=== PATIENT | female | born 1950 | race Caucasian/White ===

== ENCOUNTER 2023-07-07 22:51 | Emergency (ER) | payer MEDICARE | END 2023-07-08 00:05 | disposition home or self-care (01) | LOC: ERS 22:51 | DX: I10 Essential (primary) hypertension (principal); M81.0 Age-related osteoporosis without current pathological fracture; Z86.73 Personal history of transient ischemic attack (TIA), and cerebral infarction without residual deficits; Z79.01 Long term (current) use of anticoagulants | CPT/HCPCS: 99283 ==

== ENCOUNTER 2024-01-12 10:39 | Outpatient (CLI) | payer MEDICARE | END 2024-01-12 10:40 | disposition home or self-care (01) | LOC: RAD 10:39 | PROVIDERS: ATTEND Physician Assistant Medical | DX: R13.12 Dysphagia, oropharyngeal phase (principal); I69.30 Unspecified sequelae of cerebral infarction | CPT/HCPCS: 74230 ==

== ENCOUNTER 2024-02-18 13:06 | Outpatient (CLI) | payer MEDICARE | END 2024-02-18 13:07 | disposition home or self-care (01) | LOC: BICMAMMO 13:06 | PROVIDERS: ATTEND Family Medicine | DX: Z12.31 Encounter for screening mammogram for malignant neoplasm of breast (principal); Z13.820 Encounter for screening for osteoporosis; M81.0 Age-related osteoporosis without current pathological fracture; Z80.3 Family history of malignant neoplasm of breast; Z78.0 Asymptomatic menopausal state | CPT/HCPCS: 77063; 77067; 77080 ==

== ENCOUNTER 2024-02-23 13:42 | Outpatient (CLI) | payer MEDICARE ==
[~2024-02-23 13:42] MED LIST: Magnevist 469MG/ML 20 ML VIAL ONE
== END 2024-02-23 13:43 | disposition home or self-care (01) ==
LOC: BICMRI 13:42
PROVIDERS: ATTEND Psychiatry & Neurology Neurology
DX: G37.9 Demyelinating disease of central nervous system, unspecified (principal)
CPT/HCPCS: 72156

== ENCOUNTER 2024-07-11 09:12 | Outpatient (CLI) | payer MEDICARE | END 2024-07-11 09:13 | disposition home or self-care (01) | LOC: NM 09:12 | PROVIDERS: ATTEND Family Medicine | DX: E83.52 Hypercalcemia (principal); R79.89 Other specified abnormal findings of blood chemistry; E04.2 Nontoxic multinodular goiter | CPT/HCPCS: 78072; A9500 ==

== ENCOUNTER 2025-04-15 15:47 | Inpatient (IN) | payer MEDICARE ==
[2025-04-15] MEDS ORDERED: Iopamidol-370 76% 500 ML MDV (1 ML CHARGE) ONE (16:08)
[2025-04-15 16:28] LABS: #Basophils 0.03 10x3/uL (0.0-0.2); #Eosinophils 0.16 10x3/uL (0.0-0.7); #Monocytes 0.66 10x3/uL (0.11-0.59); #Neutrophils 4.01 10x3/uL (1.40-6.50); %Basophils 0.5 % (0.0-1.0); %Eosinophils 2.6 % (0.0-10.0); %Lymphocytes 21.7 % (21.0-51.0); %Monocytes 10.6 % (0.0-10.0); %Neutrophils 64.4 % (42.0-75.0); Hematocrit 43.9 % (36.0-47.0); Hemoglobin 14.3 g/dL (12.0-16.0); Mean Corpuscular Hemoglobin 30.2 pg (27.0-31.0); Mean Corpuscular Volume 92.6 fL (78.0-98.0); Platelet Count 188 10x3/uL (130-400); Red Blood Cell (RBC) Count 4.74 mill/uL (4.20-5.40); White Blood Cell (WBC) Count 6.22 10x3/uL (4.8-10.8)
[2025-04-15 16:50] LABS: ALT (SGPT) 19 U/L (Less than 34); AST (SGOT) 24 U/L (11-34); Albumin 3.8 g/dL (3.1-4.5); Alkaline Phosphatase 113 U/L (40-110); Anion Gap 13 mmol/L (10-20); BUN (Urea Nitrogen) 6 mg/dL (9.8-20.1); Bilirubin, Total 0.5 mg/dL (0.3-1.2); Calc. Creatinine Clearance 0 mL/min (70-130); Calcium 9.9 mg/dL (7.8-10.44); Carbon Dioxide 24 mmol/L (23-31); Chloride 109 mmol/L (98-107); Globulin 2.9 g/dL (2.4-3.5); Glucose 84 mg/dL (83-110); Potassium 3.7 mmol/L (3.5-5.1); Sodium 142 mmol/L (136-145)
[2025-04-15 17:07] LABS: Bacteria/HPF None Seen HPF (None Seen); CAUTI Indications for Culture Alt mental st,lethar; Glucose, Urine (Dipstick) Normal (Negative); Leukocyte Negative Leu/uL (Negative); Protein, Urine (Dipstick) Negative (Neg-Trace); RBC/HPF 0-3 HPF (0-3); Specific Gravity, Urine 1.002 (1.002-1.036); WBC/HPF 0-3 HPF (0-3)
[2025-04-15 17:09] LABS: Urine Culture Reflex No No
[2025-04-15] MEDS ORDERED: Aspirin Chewable 81 MG TAB ONE (18:02)
[2025-04-15] MEDS ORDERED: hydrALAZINE 20 MG/ML VIAL SLOW IVP PRN (18:36)
[2025-04-16 05:26] LABS: Cardiac Risk 2.3 (Less than 4.5); Cholesterol 125.0 mg/dl (< 200 Desired); HDL Cholesterol 55.0 mg/dL (>60 Neg Risk); LDL Cholesterol, Calculated 43.0 mg/dL; Triglycerides 136.0 mg/dL (Less than 150)
[2025-04-16 05:47] LABS: Thyroid Stimulating Hormone 2.3873 uIU/mL (0.35-4.94); Vitamin B12 794.0 pg/mL (211-911)
[2025-04-16] MEDS: Pregabalin 50 MG CAP PO SCH (08:22)
[2025-04-16] MEDS: Aspirin 81 mg Enteric Coated Tablet PO SCH (08:22)
[2025-04-16] MEDS ORDERED: Pregabalin 50 MG CAP PO SCH (21:00)
[2025-04-17] MEDS: Apixaban 5 MG TAB PO SCH (11:00)
[2025-04-17] MEDS: diphenhydrAMINE 30 GM TUBE TOP PRN (11:00)
[2025-04-17] MEDS: Acetaminophen 500 MG TAB PO PRN (14:07)
[2025-04-17 17:31] VITALS: BP 144/71; TEMP 97.3
[2025-04-17] MEDS ORDERED: Pregabalin 50 MG CAP PO SCH (21:00)
[2025-04-17] MEDS ORDERED: Apixaban 5 MG TAB PO SCH (21:00)
[2025-04-18] MEDS ORDERED: PNEUMOC 20-VAL CONJ-DIP CRM/PF 0.5 ML SYRINGE IM ONE (09:00)
== END 2025-04-17 17:30 | disposition home or self-care (01) | DRG 66 ==
LOC: ERS 15:47 → 2SE 17:58 → OBSVTOIN 04-16 16:31
PROVIDERS: ADMIT Family Medicine; ATTEND Hospitalist
DX: I63.9 Cerebral infarction, unspecified (principal); M19.90 Unspecified osteoarthritis, unspecified site; I48.91 Unspecified atrial fibrillation; I10 Essential (primary) hypertension; R29.703 NIHSS score 3; M54.16 Radiculopathy, lumbar region; F01.50 Vascular dementia, unspecified severity, without behavioral disturbance, psychotic disturbance, mood disturbance, and anxiety; R41.3 Other amnesia; Z98.890 Other specified postprocedural states; Z90.89 Acquired absence of other organs; Z98.51 Tubal ligation status; Z88.2 Allergy status to sulfonamides; Z79.899 Other long term (current) drug therapy; Z79.01 Long term (current) use of anticoagulants; I69.998 Other sequelae following unspecified cerebrovascular disease
CPT/HCPCS: 36415; 36416; 70450; 70496; 70498; 70553; 76376; 80053; 80061; 81001; 82607; 83605; 84443; 84484; 85025; 93005; 93306; G0378; Q9967